=== PATIENT | female | born 1960 | race Caucasian/White ===

== ENCOUNTER 2019-09-10 19:13 | Emergency (ER) | payer BC, SELFPAY ==
[2019-09-10 19:17] VITALS: BP 157/95; PULSE 78; RESP 20; TEMP 36.7; O2SAT 100
--- NOTE | 2019-09-10 19:37 | W.ED.GENAD ---
Discharge Plan Disposition Patient Disposition: HOME Condition: Good Discharge Details Chief Complaint: Palpitatns Clinical Impression: Chest pain Primary Care Provider: Stefania Torres ED Provider: Ramiro Friedman Discharge Instructions Instructions: Chest Pain (ED) Additional Instructions: At this time your heart work-up, and imaging are negative for significant abnormality, aortic dissection, aneurysm, heart attack, or other significant pathology. Your symptoms may certainly be related to a potential muscle sprain, more mild reflux. You do have the small adrenal nodule and small kidney cyst noted on the CT scan, but these are otherwise very common findings. As we discussed please follow-up very closely with your primary care provider to set up cardiology referral in [place]. He would benefit from an echocardiogram at some point as well as a stress test. If you notice any worsening of your symptoms, or any new symptoms such as vomiting, diarrhea, fever, chills, shortness of breath, chest pain, numbness, weakness, or fainting , please return immediately to the emergency department for reevaluation. Please follow up with your primary care provider as soon as possible for reassessment and reevaluation. As always, it was a pleasure participating in your medical care today. Referrals: Stefania Torres [Primary Care Provider] - Medical Decision Making This is a 58-year-old female with a past medical history of hypertension who takes metoprolol who presents today for evaluation of chest pain. She had an onset of chest pain 5 days ago, nonexertional, relieved after 30 minutes. Intermittent episodes of that since then with no exertional component. No red flags for PE dissection or aneurysm. Vital signs are notably benign. No significant family history of cardiac disease. She denies any history or symptoms of syncope or lightheadedness. She was seen at a urgent care in [place], 2 T wave inversions were noted in V1 and V2 and was sent to [facility] ED for further assessment. Exam is notably unremarkable at this time, vital signs stable. Differential is broad but includes atypical ACS, less likely PE dissection. GERD and muscle spasm is also on the differential. Of note patient states that years ago she did have cardiac evaluation, continued monitoring at that time for symptoms of palpitations which resulted in an unremarkable work-up. EKG shows no evidence of STEMI, only a single T wave inversion is present in V1 at this time. We will continue her evaluation, closely monitor and reassess. 8:48 PM Patient's laboratory work-up is returned unremarkable, troponin and EKG are benign, d-dimer negative, electrolytes normal, creatinine normal. TSH is slightly elevated however free T4 is normal. Lipase is normal. I had a long discussion with the patient regarding her negative x-ray findings, her negative laboratory work-up, and her clinical picture in general. I feel that currently her signs and symptoms are clinically inconsistent with ACS, dissection aneurysm or CHF. Bedside echo does show a slight decrease in her subjective cardiac output, but no signs of overt heart failure whatsoever. The remainder of the limited bedside echo was otherwise unremarkable. No signs of pericardial effusion, significant asymmetric movement, or right atrial or right ventricle enlargement. In spite of this the patient was notably persistent that she wanted the definitive testing and study for aneurysm or dissection of her chest. I did discuss risks and benefits as well as potential cost and and radiation for CT scan of the chest especially in this clinical setting, however the patient feels that she needs the reassurance of this definitive study. Respecting her wishes we will get a CT scan for further assessment. 9:[address] scan results have returned, no evidence of thoracic aortic dissection or aneurysm, no pericardial effusion or other acute abnormality. There is a left adrenal nodule and small left renal cyst. Patient does have a family history of small renal cyst. Patient continues to feel very well, with her symptoms being 5 days, I see no current indication for a repeat troponin, her signs and symptoms at this time are clinically inconsistent with significant ACS. With no EKG abnormalities to speak of, and no evidence of dysrhythmia whatsoever in addition to no actual symptoms of significant palpitations lightheadedness syncope or dizziness, I see no indication for prolonged cardiac monitoring at this time. I do feel that she would benefit from an outpatient echocardiogram and cardiac evaluation. The patient states that she would like to speak with her primary care provider in [place], and set up follow-up with cardiology there. At this time I feel that this-patient can be safely discharged home. She remains asymptomatic at this time. I have extensively reviewed the treatment plan and discharge instructions with the patient and their family. I have addressed all patient concerns at this time. The patient and family was made aware of what symptoms to monitor for that would warrant a return to the emergency department. Discussed the plan with the patient and family, they demonstrate verbal understanding and agreement with our assessment and plan at this time. EKG 19: 22 Rate 66, sinus rhythm, intervals normal, inverted T wave in V1, no evidence of significant ST elevations or depressions. No evidence of STEMI. No evidence of Brugada syndrome, Wellens syndrome, [id number], or delta wave. No epsilon wave. FINDINGS: Lungs: Unremarkable. No consolidation. Pleural space: Unremarkable. No pleural effusion. No pneumothorax. Heart/Mediastinum: Unremarkable. No cardiomegaly. Bones/joints: Degenerative thoracic spine change and mild dextroscoliosis.. IMPRESSION: 1. No acute findings. 2. Degenerative thoracic spine changes and midthoracic mild dextroscoliosis. Thank you for allowing us to participate in the care of your patient. Dictated and Authenticated by: Luis Daugherty MD 09/10/2019 8:35 PM Eastern Time ([place] & [place]) FINDINGS: Pulmonary arteries: Pulmonary arteries are not optimally opacified for evaluation of PE. No obvious PE evident. Aorta: Thoracic aorta is normal in caliber. No dissection. Lungs: No lung infiltrates. No pulmonary edema. No lung nodules. Pleural space: No pneumothorax or pleural effusions. Heart: Unremarkable. No cardiomegaly. No pericardial effusion. Liver: Posterior right hepatic calcification suggesting an old granuloma. Adrenals: Incidental finding of a 2.4 by 1.7 cm ovoid left adrenal nodule. This is a soft tissue attenuation lesion with Hounsfield units averaging approximately 40. This is somewhat hypo dense. This is likely an adenoma or benign lesion. Kidneys and ureters: Subcentimeter left upper medial cortex renal cyst. Lymph nodes: Unremarkable. No enlarged lymph nodes. Bones/joints: Unremarkable. No acute fracture. Soft tissues: No soft tissue mass of the chest wall. IMPRESSION: 1. No evidence of thoracic aortic dissection or aneurysm. 2. No pericardial effusion. 3. No lung infiltrates or edema. 4. No pleural effusion or pneumothorax. 5. Left adrenal nodule. 6. Small left renal cyst. Thank you for allowing us to participate in the care of your patient. Dictated and Authenticated by: Luis Daugherty HPI General Date/Time Provider Initiated Documentation: 09/10/19 19:19. HPI Narrative: This is a 58-year-old female with a past medical history of hypertension who presents today for evaluation of chest pain. Patient states that 5 days ago she was sitting in her car when she developed a central localized area of chest pressure. Lasted about 30 minutes, it went away on its own. There is no exertional component. Over the next 4 to 5 days she had occasional recurrence of the symptoms, sometimes while at rest, sometimes while standing, but never in an exertional component. There is no pleuritic component. Today the pain slightly transitioned to pain between her shoulder blades which she describes as a mild achy burning-like sensation. She denies any crushing chest pain, chest tightness, bandlike sensation around the chest. She denies any arm neck or shoulder pain. She denies any tearing sensation. Currently she states that she is pain-free. Denies PE risk factors such as recent long car rides, immobilization, recent surgery, prior history of DVT or PE, family history of PE or DVT, morbid obesity, exogenous estrogen and smoking, hemoptysis, history of cancer.She denies any significant cardiac history for herself or her first-degree relatives. She denies any history of aortic dissection or aneurysm. She denies any worsening or relieving of the symptoms with position or food. Patient denies any other complaints or modifying factors at this time. Of note the patient did drive from [place] down to [place] to be seen at the urgent care, and was noted to have 2 inverted T waves in V1 and V2. She was then sent to [facility] ED for further assessment. General Stated Complaint: Palpitatns SHAHID: 2 Review of Systems All systems reviewed & are unremarkable except as noted in HPI and below Exam Narrative Exam Narrative: 1.Const: Well-nourished, Well-developed, appearing stated age 2.Eyes: PERRL, no conjunctival injection, and symmetrical lids. 3.ENT: Atraumatic external nose and ears. Moist MM. Neck: Symmetric, trachea midline, No thyromegaly. 4.CVS: +S1/S2, No murmurs or gallops. Peripheral pulses 2+ and equal in all extremities. Brisk capillary refill in all extremities. 5.RESP: Unlabored respiratory effort. Clear to auscultation bilaterally. No wheezes rales or rhonchi 6.GI: Soft, Nontender/Nondistended, No hepatosplenomegaly. No guarding or rebound. 7.MSK: Normocephalic/Atraumatic, Extremities w/o deformity or ttp No cyanosis or clubbing, Normal movement of all extremities 8.Skin: Warm, Dry. No rashes or lesions. 9.Neuro: recruiting coordinator II-XII grossly intact. Sensation grossly intact, no focal neurologic deficits. 10.Psych: (AAO) x3. Appropriate mood and affect Course Vital Signs Vital signs: Vital Signs Temperature 36.7 C 09/10/19 19:17 Pulse 78 09/10/19 19:17 Respiratory Rate 09/10/19 19:17 Blood Pressure 157/95 H 09/10/19 19:17 Pulse Oximetry 100 09/10/19 19:17 Temperature 36.7 C 09/10/19 19:17 Temperature Source Skin 09/10/19 19:17 Pulse 78 09/10/19 19:17 Respiratory Rate 09/10/19 19:17 Blood Pressure 157/95 H 09/10/19 19:17 Blood Pressure Position Sitting 09/10/19 19:17 Pulse Oximetry 100 09/10/19 19:17 Oxygen Delivery Method Room Air 09/10/19 19:17 Oxygen Flow Rate 0 09/10/19 19:17
[2019-09-10 19:47] LABS: Abs Immature Grans 0.01 k/cumm (0.0-0.09); Absolute Basophil Count 0.01 k/cumm (0.0-0.2); Absolute Eosinophil Count 0.12 k/cumm (0.0-0.7); Absolute Lymphocyte Count 1.93 k/cumm (1.2-3.4); Absolute Monocyte Count 0.49 k/cumm (0.11-0.7); Absolute Neutrophil Count 3.05 k/cumm (1.2-6.7); Basophils % 0.2; Eosinophils % 2.1; HCT 41.9 % (36.0-46.0); HGB 14.5 g/dL (12.0-15.5); Immature Grans % 0.2 %; Lymphocytes % 34.4; Mean Corp. HGB Concentration 34.6 g/dL (32.0-36.0); Mean Corpuscular Hemoglobin 30.1 pg (27.0-33.0); Mean Corpuscular Volume 87.1 fL (80-95); Mean Platelet Volume 10.6 fL (8.0-11.0); Monocytes % 8.7; Neutrophils % 54.4; Platelet Count 272 x1000/uL (130-400); RBC 4.81 m/cumm (4.00-5.20); RBC Distribution Width 12.2 % (11.7-14.6); White Blood Cell Count 5.61 k/cumm (4.4-10.8)
[2019-09-10 20:00] LABS: PTT Activated 25.6 sec (21.0-31.4); Prothrombin Time 10.4 sec (9.3-11.0)
[2019-09-10] MEDS: Normal Saline 500 ML IV (20:01)
[2019-09-10 20:10] LABS: ALT 56 U/L (14-59); AST 46 U/L (15-37); Albumin 4.3 g/dL (3.4-5.0); Alkaline Phosphatase 81 U/L (46-116); BUN 20 mg/dL (7-18); Bilirubin, Total 0.4 mg/dL (0.2-1.0); Calcium 8.9 mg/dL (8.5-10.1); Chloride 105 mmol/L (98-107); Glucose 90 mg/dL (74-106); Lipase 144 U/L (73-393); Potassium 3.7 mmol/L (3.5-5.1); Sodium 140 mmol/L (136-145); TSH (W/Ref FT4) 5.53 uIU/mL (0.36-3.74); Total Protein 7.7 g/dL (6.4-8.2); Troponin I < 0.05 ng/Ml (<0.06)
--- NOTE | 2019-09-10 20:10 | DI.RAD_ITS ---
EXAM: XR CHEST 2V PA LATERAL CLINICAL HISTORY: central chest pain. TECHNIQUE: 2D digital imaging was performed. COMPARISON: No exams were available for comparison FINDINGS: LUNGS: Clear. No pleural abnormality seen. HEART: Normal. MEDIASTINUM: Normal. OTHER FINDINGS:Normal. BONE:Degenerative changes. IMPRESSION: No acute pulmonary findings.
[2019-09-10 20:20] LABS: D-Dimer 243 ng/mlFEU (<500)
[2019-09-10 20:27] LABS: FREE T4 1.16 ng/dL (0.76-1.46)
--- NOTE | 2019-09-10 20:37 | DI.VRAD_ITS ---
PROCEDURE INFORMATION: Exam: XR Chest, 2 Views Exam date and time: 09/10/2019 8:11 PM Age: 58 years old Clinical indication: Patient HX: Central chest pain, pain between shoulder blades TECHNIQUE: Imaging protocol: XR of the chest Views: 2 views. COMPARISON: No relevant prior studies available. FINDINGS: Lungs: Unremarkable. No consolidation. Pleural space: Unremarkable. No pleural effusion. No pneumothorax. Heart/Mediastinum: Unremarkable. No cardiomegaly. Bones/joints: Degenerative thoracic spine change and mild dextroscoliosis.. IMPRESSION: 1. No acute findings. 2. Degenerative thoracic spine changes and midthoracic mild dextroscoliosis. Dictated and Authenticated by: Luis Daugherty MD. Ordering:NISSA Rubio MD
[2019-09-10] MEDS: Omnipaque 350 MG/ML 100 ML BTL IJ (21:05)
--- NOTE | 2019-09-10 21:10 | DI.CT_ITS ---
EXAM: CT THORAX CTA CLINICAL HISTORY: chest pain, r/o dissection or aneurysm. TECHNIQUE: Imaging Protocol: Axial CT angiography was performed with multi-slice acquisition and mu lti-planar and/or 3D reconstructions. CONTRAST MATERIAL: Intravenous: Omnipaque 350 Contrast volume:63 mL COMPARISON: XR CHEST 2V PA LATERAL from 09/10/2019 FINDINGS: Pulmonary Arteries: Inadequately opacified for evaluation of pulmonary embolism. Tracheobronchial tree: Patent where visualized. Mediastinum and Radha: No dominant adenopathy or fluid collection. Pulmonary parenchyma: No consolidation or dominant measurable mass. No architectural distortion. Pleura: No effusion or pneumothorax. Heart: The heart is not dilated. No coronary artery calcifications are seen. Aorta: Thoracic aorta non-dilated. No evidence of aneurysm or dissection. Upper abdomen: There is a 2.4 x 1.7 cm left adrenal nodule. It is hypodense. This likely reflects a benign lesion or an adenoma. Small left renal cyst. Bones: No acute abnormality. IMPRESSION: No evidence of thoracic aortic aneurysm or dissection. DATA REPOSITORY: All CT scans at this facility are submitted to the National Radiology Data Registry (NRDR) Dose Index Registry (DIR) with the [employer] (A[employer]). RADIATION OPTIMIZATION: All CT scans at this facility use at least one of these dose optimization te chniques: automated exposure control; mA and/or kV adjustment per patient size (includes targeted exa ms where dose is matched to clinical indication); or iterative reconstruction.
--- NOTE | 2019-09-10 21:35 | DI.VRAD_ITS ---
PROCEDURE INFORMATION: Exam: CT Angiography Chest With Contrast Exam date and time: 09/10/2019 8:46 PM Age: 58 years old Clinical indication: Type not specified; Patient HX: Chest pain. R/O dissection or aneurism. PT states pain between shoulder blades TECHNIQUE: Imaging protocol: Computed tomographic angiography of the chest with intravenous contrast. 3D rendering: MIP and/or 3D reconstructed images were created by the technologist. Radiation optimization: All CT scans at this facility use at least one of these dose optimization techniques: automated exposure control; mA and/or kV adjustment per patient size (includes targeted exams where dose is matched to clinical indication); or iterative reconstruction. Contrast material: OMNI 350; Contrast volume: 63 ml; Contrast route: IV; COMPARISON: CR XR CHEST 2V PA LATERAL 09/10/2019 8:10 PM FINDINGS: Pulmonary arteries: Pulmonary arteries are not optimally opacified for evaluation of PE. No obvious PE evident. Aorta: Thoracic aorta is normal in caliber. No dissection. Lungs: No lung infiltrates. No pulmonary edema. No lung nodules. Pleural space: No pneumothorax or pleural effusions. Heart: Unremarkable. No cardiomegaly. No pericardial effusion. Liver: Posterior right hepatic calcification suggesting an old granuloma. Adrenals: Incidental finding of a 2.4 by 1.7 cm ovoid left adrenal nodule. This is a soft tissue attenuation lesion with Hounsfield units averaging approximately 40. This is somewhat hypo dense. This is likely an adenoma or benign lesion. Kidneys and ureters: Subcentimeter left upper medial cortex renal cyst. Lymph nodes: Unremarkable. No enlarged lymph nodes. Bones/joints: Unremarkable. No acute fracture. Soft tissues: No soft tissue mass of the chest wall. IMPRESSION: 1. No evidence of thoracic aortic dissection or aneurysm. 2. No pericardial effusion. 3. No lung infiltrates or edema. 4. No pleural effusion or pneumothorax. 5. Left adrenal nodule. 6. Small left renal cyst. Dictated and Authenticated by: Luis Daugherty MD. Ordering:NISSA Rubio MD
[2019-09-10 22:03] VITALS: BP 147/80; PULSE 71; RESP 16; TEMP 36.6; O2SAT 96
== END 2019-09-10 22:00 | disposition home or self-care (01) ==
PROVIDERS: Emergency Provider Student in an Organized Health Care Education/Training Program; PCP Internal Medicine
DX: R00.2 Palpitations (principal); R07.9 Chest pain, unspecified; I10 Essential (primary) hypertension
CPT/HCPCS: 36415; 71275; 80053; 83690; 93005; 96360; 99285; 71046; 84439; 84443; 84484; 85025; 85379; 85610; 85730; 93010; J3490